=== PATIENT | male | born 1955 | race Caucasian/White ===

== ENCOUNTER 2025-05-21 10:43 | Outpatient (CLI) | payer MEDICARE ==
[2025-05-21 12:07] LABS: Hematocrit 43.1 % (42.0-52.0); Hemoglobin 13.8 g/dL (14.0-18.0); Mean Corpuscular Hemoglobin 29.9 pg (27.0-31.0); Mean Corpuscular Volume 93.6 fl (78.0-98.0); Platelet Count 225 10x3/uL (130-400); Red Blood Cell (RBC) Count 4.61 mill/uL (4.70-6.10); White Blood Cell (WBC) Count 6.7 10x3/uL (4.8-10.8)
[2025-05-21 12:09] LABS: Glucose, Urine (Dipstick) Negative (Negative); Leukocyte Trace (Negative); Protein, Urine (Dipstick) Negative (Neg-Trace); Specific Gravity, Urine 1.025 (1.005-1.030)
[2025-05-21 12:28] LABS: ALT (SGPT) 26 U/L (Less than 45); AST (SGOT) 24 U/L (11-34); Albumin 4.3 g/dL (3.1-4.5); Alkaline Phosphatase 85 U/L (40-110); Anion Gap 15 mmol/L (10-20); BUN (Urea Nitrogen) 20 mg/dL (8.4-25.7); BUN/Creatinine Ratio 16.13; Bilirubin, Direct 0.1 mg/dL (0.1-0.3); Bilirubin, Total 0.3 mg/dL (0.3-1.2); Calc. Creatinine Clearance 0 mL/min (70-130); Calcium 9.3 mg/dL (7.8-10.44); Carbon Dioxide 24 mmol/L (23-31); Cardiac Risk 4.0 (Less than 4.5); Chloride 107 mmol/L (98-107); Cholesterol 140 mg/dl (< 200 Desired); Glucose 95 mg/dL (80-115); HDL Cholesterol 35 mg/dL (>60 Neg Risk); LDL Cholesterol, Calculated 69 mg/dL; Potassium 4.2 mmol/L (3.5-5.1); Sodium 142 mmol/L (136-145); Triglycerides 178 mg/dL (Less than 150); Uric Acid 5.0 mg/dL (3.7-7.7)
[2025-05-21 19:14] LABS: Protein, Urine Random Quant Less than 10 mg/dL (1-14)
== END 2025-05-21 10:44 | disposition home or self-care (01) ==
LOC: MADLAB 10:43
PROVIDERS: ATTEND Internal Medicine Nephrology
DX: N40.0 Benign prostatic hyperplasia without lower urinary tract symptoms (principal); C44.41 Basal cell carcinoma of skin of scalp and neck; N28.9 Disorder of kidney and ureter, unspecified; M19.90 Unspecified osteoarthritis, unspecified site; J44.9 Chronic obstructive pulmonary disease, unspecified; K27.9 Peptic ulcer, site unspecified, unspecified as acute or chronic, without hemorrhage or perforation; Z87.891 Personal history of nicotine dependence; Z98.890 Other specified postprocedural states; J98.09 Other diseases of bronchus, not elsewhere classified
CPT/HCPCS: 36415; 71046; 80061; 80069; 80076; 81003; 82570; 84156; 84443; 84550; 85027; G0103